=== PATIENT | female | born 1995 | race Two or more races ===

== ENCOUNTER 2024-05-20 12:27 | Emergency (ER) | payer OTHER, SELFPAY ==
--- NOTE | ~2024-05-20 | XR_ITS ---
XR chest 2V Ordering provider: TIMO De Souza History: 28 years Female with . cough fever . Comparison: None. FINDINGS: MEDIASTINUM: The cardiac silhouette is not enlarged. LUNGS: No effusions or pneumothorax. Opacification in the left lower ureter area laterally is noted s uggestive of pneumonia. OTHER: No free air under the diaphragm. IMPRESSION: Left lower lobe pneumonia. Reviewed, dictated and finalized at location A. GER CAFE IMPRESSION: Left lower lobe pneumonia.
[2024-05-20 12:39] VITALS: BP 106/66; PULSE 79; RESP 16; TEMP 36.8; O2SAT 100
--- NOTE | 2024-05-20 13:37 | ED.GENADULT ---
HPI - General Adult General Chief complaint: Upper Respiratory Infection Stated complaint: Cough/Fever/Headache Source: patient Mode of arrival: ambulatory Limitations: no limitations History of Present Illness HPI narrative: Patient presents for evaluation of a cough for the last week. She has some mild dyspnea on exertion. She denies any fever, chills, sore throat, otalgia nausea, vomiting, diarrhea. No recent sick contacts to her knowledge. She does not smoke. Related Data Allergies Allergy/AdvReac Type Severity Reaction Status Date / Time No Known Allergies Allergy Verified 05/20/24 13:15 Review of Systems Review of Systems: CONSTITUTIONAL: Denies fever, chills, or sweats. EYES: Denies visual changes, redness, or discharge. ENT: Denies rhinorrhea, congestion, sore throat, or otalgia. CARDIOVASCULAR: Denies chest pain, palpitations, or edema. RESPIRATORY: Reports cough and ROCHE GASTROINTESTINAL: Denies abdominal pain, nausea, vomiting, or diarrhea. GENITOURINARY: Denies dysuria or hematuria. SKIN: Denies rash or itching. MUSCULOSKELETAL: Denies back pain, joint pain, or myalgia. NEUROLOGIC: Denies headache, numbness, dizziness, or weakness. PSYCHIATRIC: Denies anxiety or depression. [facility] Past Medical History Medical History No pertinent past medical history Surgical History Surgical History No pertinent past surgical history Family History Family History Mother Family history non-contributory Social History Social History (Updated 05/20/24 @ 14:13 [facility] Smoking status: Never smoker Substance use: never Gender identity (if verbalized by the patient): Female Spiritual care concerns: No Exam Narrative: GENERAL: Well-appearing, well-nourished, and in no acute distress. HEAD: Normocephalic, atraumatic. EYES: PERRLA and EOMI. ENT: Nares clear, no rhinorrhea or epistaxis. Mucous membranes moist. Oropharynx without tonsillar hypertrophy exudate or other lesions. Bilateral TMs pearly johnston nonbulging NECK: Supple. No adenopathy or masses. No carotid bruits or JVD CHEST: Clear to auscultation. Occasional cough present. No respiratory distress. No wheezes rales or rhonchi HEART: Regular rate and rhythm. No murmur heard. Normal peripheral pulses. ABDOMEN: Soft, nontender, nondistended, normal active bowel sounds. EXTREMITIES: Normal range of motion. No edema. SKIN: Warm, dry, no rash. NEURO: No focal deficits. Alert and oriented x3. PSYCH: Normal mood and affect. Course Course Emergency Course: This is a 28-year-old female who presented for evaluation of a cough. Chest x-ray showed left lower lobe pneumonia. Will discharge with Augmentin and azithromycin. Increase hydration. Ebbg-kez-ryrihir agents for symptom management. Follow up with primary provider. Go to the ER for worsening symptoms. Patient in agreement with plan of care. Level of Care: Express Care Visit Vital Signs Vital signs: Vital Signs Temperature 36.8 C 05/20/24 12:39 Pulse Rate 79 05/20/24 12:39 Respiratory Rate 16 05/20/24 12:39 Blood Pressure 106/66 05/20/24 12:39 Pulse Oximetry 100 05/20/24 12:39 Temperature 36.8 C 05/20/24 12:39 Pulse Rate 79 05/20/24 12:39 Respiratory Rate 16 05/20/24 12:39 Blood Pressure 106/66 05/20/24 12:39 Pulse Oximetry 100 05/20/24 12:39 Oxygen Delivery Room Air 05/20/24 12:42 Medical Decision Making Vital Signs Vital Signs: Vital Signs Temperature 36.8 C 05/20/24 12:39 Pulse Rate 79 05/20/24 12:39 Respiratory Rate 16 05/20/24 12:39 Blood Pressure 106/66 05/20/24 12:39 Pulse Oximetry 100 05/20/24 12:39 Temperature 36.8 C 05/20/24 12:39 Pulse Rate 79 05/20/24 12:39 Respiratory Rate 16 05/20/24 12:39 Blood Pressure 106/66 05/20/24 12:39 Pulse Oximetry 100 05/20/24 12:39 Oxygen Delivery Room Air 05/20/24 12:42 Imaging Data Radiologist's impression: XR chest 2V Ordering provider: TIMO De Souza History: 28 years Female with . cough fever . Comparison: None. FINDINGS: MEDIASTINUM: The cardiac silhouette is not enlarged. LUNGS: No effusions or pneumothorax. Opacification in the left lower ureter area laterally is noted suggestive of pneumonia. OTHER: No free air under the diaphragm. IMPRESSION: Left lower lobe pneumonia. Discharge Plan Discharge Clinical Impression: Left lower lobe pneumonia Patient Disposition: Home, Self-Care Condition: Stable Instructions: Antibiotic Form, Community Acquired Pneumonia (DC) Patient Language: Mongolian Prescriptions: New amoxicillin-pot clavulanate 875-125 mg tablet 1 tablet PO Q12H Qty: 20 0RF azithromycin [Zithromax Z-Benny] 250 mg tablet See Rx Instructions .ROUTE .COMPLEX Qty: 6 0RF Rx Instructions: For 250 mg dose pack: take 500 mg today (day 1), then 250 mg for 4 days (days 2-5) Follow-up/Referrals: Milan Armando MD [Physician] - Time of Disposition: 13:44
== END 2024-05-20 13:47 | disposition home or self-care (01) ==
PROVIDERS: Emergency Provider Nurse Practitioner
DX: J18.1 Lobar pneumonia, unspecified organism (principal)
CPT/HCPCS: 71046; 99213; G0463

== ENCOUNTER 2025-01-22 13:40 | Outpatient (CLI) | payer OTHER, SELFPAY ==
--- NOTE | ~2025-01-22 | US_ITS ---
EXAMINATION TYPE: US breast RT complete COMPARISON: NONE REASON FOR STUDY: right breast mass TECHNIQUE: Targeted sonographic evaluation of the right breast was performed. INTERPRETATION: At the 4:00 position right breast, 4 cm from the nipple, there is a 1.1 x 0.6 x 0.8 cm hypoechoic jem id nodule which is wider than tall with well-circumscribed borders. No posterior shadowing. 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 Six-month follow-up ultrasound recommended to reassess. BI-RADS CATEGORY: BI-RADS 3: Probably benign. Short interval follow-up recommended Reviewed, dictated and finalized at location . 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 Six-month follow-up ultraso und recommended to reassess. BI-RADS CATEGORY: BI-RADS 3: Probably benign. Short interval follow-up recommended
== END 2025-01-22 13:41 | disposition home or self-care (01) ==
LOC: MICIMG 13:41
PROVIDERS: PCP Nurse Practitioner; Visit Provider Nurse Practitioner
DX: N63.14 Unspecified lump in the right breast, lower inner quadrant (principal); N64.4 Mastodynia
CPT/HCPCS: 76641

== ENCOUNTER 2025-04-15 14:44 | Outpatient (CLI) | payer OTHER, SELFPAY ==
[2025-04-15 15:23] LABS: Hematocrit 38.3 % (37.0-47.0); Hemoglobin 12.6 g/dL (12.0-15.0); Mean Corpuscular HGB Conc 32.9 g/dl (32-36); Mean Corpuscular Hemoglobin 28.1 pg (26-34); Mean Corpuscular Volume 85.3 fl (80-100); Platelet Count Result 285 k/mm3 (150-375); Red Blood Count 4.49 M/mm3 (4.2-5.4); White Blood Count 4.3 K/mm3 (4.5-10.0)
[2025-04-15 15:56] LABS: Free T4 Free Thyroxine 1.21 ng/dL (0.78-2.19)
[2025-04-15 16:07] LABS: Thyroid Stimulating Hormone 1.500 uIU/mL (0.465-4.680)
== END 2025-04-15 14:45 | disposition home or self-care (01) ==
PROVIDERS: PCP Nurse Practitioner; Visit Provider Nurse Practitioner Family
DX: E22.1 Hyperprolactinemia (principal); R53.83 Other fatigue
CPT/HCPCS: 36415; 84146; 84439; 84443; 85027

== ENCOUNTER 2025-07-01 10:30 | Outpatient (CLI) | payer OTHER, SELFPAY ==
--- NOTE | ~2025-07-01 | US_ITS ---
EXAMINATION: US breast RT limited INDICATION: 29-year old female; BI-RADS 3, evaluate probably benign right breast mass. COMPARISON: 01/22/2025 TECHNIQUE: Targeted sonographic evaluation of the probably benign mass in the right breast was completed. FINDINGS: A 1.0 x 0.6 x 1.0 cm circumscribed hypoechoic mass at 4:00 location 4 cm from the nipple in the RIGHT breast reidentified is unchanged. IMPRESSION: Probably benign right breast mass have not significantly changed. RECOMMENDATION: Continue imaging surveillance with right breast ultrasound in 6 months. BI-RADS 3, PROBABLY BENIGN Reviewed, dictated and finalized at location A. ILE STYLIST
== END 2025-07-01 10:31 | disposition home or self-care (01) ==
LOC: ANHFOHIMG 10:32
PROVIDERS: PCP Nurse Practitioner; Visit Provider Surgery
DX: N63.14 Unspecified lump in the right breast, lower inner quadrant (principal)
CPT/HCPCS: 76642